=== PATIENT | male | born 1950 | race Caucasian/White ===

== ENCOUNTER 2024-05-24 17:10 | Emergency (ER) | payer MEDICARE, OTHER ==
[~2024-05-24] VITALS: Ht 175.3 cm; Wt 70.7 kg
[2024-05-24] MEDS ORDERED: KAPSPARGO SPRIN25 MG PO (17:28)
[2024-05-24 18:13] LABS: BASOPHILS 0.8 % (0-2); EOSINOPHILS 4.9 % (0-6); HEMATOCRIT 28.9 % (35.0-50.0); HEMOGLOBIN 9.7 g/dL (12.0-18.0); LYMPHOCYTES 34.6 % (24-44); MCH 31.3 (27-36); MCHC 33.6 g/dl (30-36); MCV 93.4 fl (81-99); MONOCYTES 8.5 % (0-12); NEUTROPHILS 51.2 % (39-80); PLATELET COUNT 267 K/uL (140-440); RBC 3.09 M/ul (4.3-5.7); RDW 15.2 (10.5-15.0)
[2024-05-24] MEDS ORDERED: SODIUM CHLORIDE 0.9% 1,000 ML IV PRN (18:15)
[2024-05-24 18:18] LABS: INR 1.13 (0.80-1.30); PROTIME 14.1 Sec (11.2-14.2)
[2024-05-24 18:26] LABS: PARTIAL THROMBOPLASTIN TIME 29.7 Sec (22.9-41.3)
[2024-05-24 18:38] LABS: ALBUMIN/GLOBULIN RATIO 0.97 (1.1-2.4); ALCOHOL, MEDICAL <3 ng/dL (<3); ALKALINE PHOSPHATASE 230 U/L (46-116); ALT (SGPT) 84 U/L (14-59); ANION GAP 13.5 (7-21); AST (SGOT) 46 U/L (15-37); BILIRUBIN, TOTAL 0.7 ng/dL (0.2-1.0); BUN/CREATININE RATIO 21.25 (6.0-28.6); CALCIUM 8.8 mg/dL (8.5-10.1); CARBON DIOXIDE 26 mmol/L (21-32); CHLORIDE 106 mmol/L (98-107); GLOMERULAR FILTRATION RATE,EST 45 mL/min (>60); POTASSIUM 4.5 mmol/L (3.5-5.1); PROTEIN, TOTAL 6.1 g/dL (6.4-8.2); UREA NITROGEN 34 mg/dL (7-18)
[2024-05-24 19:46] LABS: BILIRUBIN, URINE NEGATIVE (negative); BLOOD/HGB, URINE NEGATIVE (Negative); KETONE, URINE NEGATIVE (Negative); LEUK ESTERASE, URINE NEGATIVE (negative); NITRITE, URINE NEGATIVE (negative)
[2024-05-24 20:00] LABS: AMPHETAMINES, URINE NEGATIVE (NEGATIVE); BARBITURATES, URINE NEGATIVE (NEGATIVE); BENZODIAZEPINE, URINE NEGATIVE (NEGATIVE); BUPRENORPHINE, URINE NEGATIVE (NEGATIVE); CANNABINOID, URINE POSITIVE (NEGATIVE); COCAINE, URINE NEGATIVE (NEGATIVE); ECSTASY, URINE NEGATIVE (NEGATIVE); FENTANYL, URINE NEGATIVE (NEGATIVE); METHADONE, URINE NEGATIVE (NEGATIVE); OPIATES, URINE NEGATIVE (NEGATIVE); OXYCODONE, URINE POSITIVE (NEGATIVE); PHENCYCLIDINE, URINE NEGATIVE (NEGATIVE)
[2024-05-24 20:37] VITALS: BP 104/60
--- NOTE | 2024-05-25 11:38 | EKG ---
[facility] [address] [facility] [place] [address] Signed Sinus rhythm with 1st degree AV block Left anterior fascicular block Minimal voltage criteria for LVH, may be normal variant ( [place] product ) Abnormal ECG No previous ECGs available Confirmed by Westley Lo MD ([id number]) on 05/25/2024 11:38:11 AM Electronically Signed By: WESTLEY LO MD 05/25/24 1138 PATIENT NAME: YOARSENIO CHELSEA Electrocardiogram DATE OF : 48 PHYSICIAN: WESTLEY LO MD REPORT #: [id number] REPORT IS CONFIDENTIAL AND NOT TO BE RELEASED WITHOUT AUTHORIZATION
== END 2024-05-24 20:32 | disposition home or self-care (01) ==
LOC: ED 17:10
PROVIDERS: Emergency Medicine
DX: R53.1 Weakness (principal); E86.0 Dehydration; I10 Essential (primary) hypertension; Z79.899 Other long term (current) drug therapy
CPT/HCPCS: 36415; 80053; 80307; 81003; 82140; 83880; 84443; 84484; 85025; 85610; 85730; 93005; 93010; 99285; G0480